=== PATIENT | female | born 1975 | race Caucasian/White ===

== ENCOUNTER 2017-09-06 15:10 | Emergency (ER) | payer MEDICAID, OTHER ==
[2017-09-06 16:13] LABS: ADD MAN DIFF? NO
[2017-09-06 16:16] LABS: WHITE BLOOD COUNT 10.3 10^3/ul (4.8-10.8)
[2017-09-06 16:16] LABS: BASOPHIL # 0.1 10^3/ul (0.0-0.1); BASOPHILS % 0.7 % (0.0-2.0); EOSINOPHILS # 0.1 10^3/ul (0.0-0.5); EOSINOPHILS % 0.9 % (0.0-7.0); HEMOGLOBIN 12.5 g/dl (12.0-16.0); LYMPHOCYTES # 1.9 10^3/ul (0.8-2.9); LYMPHOCYTES % 18.3 % (15.0-51.0); MEAN CORPUSCULAR HEMOGLOBIN 26.1 pg (29.0-33.0); MEAN CORPUSCULAR HGB CONC 33.8 g/dl (32.0-37.0); MEAN CORPUSCULAR VOLUME 77.2 fl (82.0-101.0); MEAN PLATELET VOLUME 10.1 fl (7.4-10.4); MONOCYTE # 0.8 10^3/ul (0.3-0.9); MONOCYTES % 7.4 % (0.0-11.0); NEUTROPHIL # 7.4 10^3/ul (1.6-7.5); NEUTROPHILS % 72.2 % (39.0-77.0); PLATELET COUNT 271 10^3/UL (140-415); RED BLOOD COUNT 4.79 10^6/ul (4.20-5.40); RED CELL DISTRIBUTION WIDTH 17.2 % (11.5-14.5)
[2017-09-06 16:40] LABS: ADD UMIC YES; UR ASCORBIC ACID 40 mg/dL (NEGATIVE); UR BACTERIA FEW /HPF (NONE SEEN); UR BILIRUBIN (Dip) NEGATIVE (NEGATIVE); UR BLOOD (Dip) 3+ mg/dL (NEGATIVE); UR CLARITY SLIGHTLY CLOUDY (CLEAR); UR COLOR YELLOW (YELLOW); UR GLUCOSE (Dip) 1+ mg/dL (NEGATIVE); UR KETONES (Dip) TRACE mg/dL (NEGATIVE); UR LEUKOCYTE ESTERASE (Dip) TRACE Leu/ul (NEGATIVE); UR MUCUS FEW /HPF (NONE SEEN); UR NITRITE (Dip) NEGATIVE (NEGATIVE); UR RBC > 182 /HPF (0-5); UR SPECIFIC GRAVITY (Dip) 1.025 (1.003-1.030); UR TOTAL PROTEIN (Dip) 1+ mg/dl (NEGATIVE); UR UROBILINOGEN (Dip) NEGATIVE (NEGATIVE); UR WBC 29 /HPF (0-5)
== END 2017-09-06 18:02 | disposition home or self-care (01) ==
LOC: FTE 15:10
DX: O20.9 Hemorrhage in early pregnancy, unspecified (principal); R10.2 Pelvic and perineal pain; Z3A.12 12 weeks gestation of pregnancy
CPT/HCPCS: 36415; 76801; 81001; 84702; 85025; 86900; 86901; 99284-25

== ENCOUNTER 2018-01-15 12:42 | Inpatient (IN) | payer MEDICAID ==
[2018-01-15] MEDS: LACTATED RINGER'S 1,000 ML IV ×4 (15:10→23:51)
[2018-01-15 15:15] LABS: ADD UMIC YES; UR ASCORBIC ACID NEGATIVE (NEGATIVE); UR BACTERIA FEW /HPF (NONE SEEN); UR BILIRUBIN (Dip) NEGATIVE (NEGATIVE); UR BLOOD (Dip) NEGATIVE (NEGATIVE); UR CLARITY CLOUDY (CLEAR); UR COLOR YELLOW (YELLOW); UR GLUCOSE (Dip) NEGATIVE (NEGATIVE); UR KETONES (Dip) 1+ mg/dL (NEGATIVE); UR LEUKOCYTE ESTERASE (Dip) 2+ Leu/ul (NEGATIVE); UR MUCUS FEW /HPF (NONE SEEN); UR NITRITE (Dip) NEGATIVE (NEGATIVE); UR RBC 2 /HPF (0-5); UR SPECIFIC GRAVITY (Dip) 1.019 (1.003-1.030); UR SQUAMOUS EPITHELIAL CELL MANY /HPF (FEW); UR TOTAL PROTEIN (Dip) NEGATIVE (NEGATIVE); UR UROBILINOGEN (Dip) NEGATIVE (NEGATIVE); UR WBC 12 /HPF (0-5)
[2018-01-15 15:31] LABS: ADD MAN DIFF? NO
[2018-01-15 15:35] LABS: BASOPHILS % 0.4 % (0.0-2.0); EOSINOPHILS # 0.1 10^3/ul (0.0-0.5); EOSINOPHILS % 0.6 % (0.0-7.0); HEMATOCRIT 37.3 % (37.0-47.0); HEMOGLOBIN 12.7 g/dl (12.0-16.0); LYMPHOCYTES # 1.9 10^3/ul (0.8-2.9); MEAN CORPUSCULAR VOLUME 88.2 fl (82.0-101.0); MEAN PLATELET VOLUME 11.4 fl (7.4-10.4); MONOCYTE # 0.8 10^3/ul (0.3-0.9); MONOCYTES % 8.3 % (0.0-11.0); NEUTROPHIL # 6.3 10^3/ul (1.6-7.5); NEUTROPHILS % 69.3 % (39.0-77.0); PLATELET COUNT 221 10^3/UL (140-415); RED BLOOD COUNT 4.23 10^6/ul (4.20-5.40); RED CELL DISTRIBUTION WIDTH 13.6 % (11.5-14.5)
[2018-01-15 15:58] LABS: ALANINE AMINOTRANSFERASE 12 IU/L (13-69); ALBUMIN 3.6 g/dl (3.3-4.9); ALKALINE PHOSPHATASE 178 IU/L (42-121); ANION GAP 14 (8-16); ASPARTATE AMINO TRANSFERASE 22 IU/L (15-46); BILIRUBIN,INDIRECT 0.4 mg/dl (0-1.1); BILIRUBIN,TOTAL 0.4 mg/dl (0.2-1.3); BLOOD UREA NITROGEN 7 mg/dl (7-20); CALCIUM 9.1 mg/dl (8.4-10.2); CARBON DIOXIDE 20 mmol/L (21-31); CHLORIDE 108 mmol/L (97-110); CREATININE 0.51 mg/dl (0.44-1.00); GLUCOSE 78 mg/dl (70-220); SODIUM 138 mmol/L (135-144); TOTAL PROTEIN 7.6 g/dl (6.1-8.1)
[2018-01-15 16:09] LABS: PROTIME 12.2 Sec (11.9-14.9)
[2018-01-15 16:10] LABS: PARTIAL THROMBOPLASTIN TIME 27.5 Sec (25.0-35.0)
[2018-01-15] MEDS: ACETAMINOPHEN 325 MG TAB PO (17:00)
[2018-01-15] MEDS: BETAMET NA PHOS/AC(6 MG/ML) 5ML INJ IM (23:06)
[2018-01-15 23:14] LABS: RAPID PLASMA REAGIN NONREACTIVE (NR)
[2018-01-16] MEDS: LACTATED RINGER'S 1,000 ML IV ×2 (07:59→16:16)
[2018-01-16] MEDS: BETAMET NA PHOS/AC(6 MG/ML) 5ML INJ IM (23:05)
[2018-01-17] MEDS: LACTATED RINGER'S 1,000 ML IV ×2 (00:57→09:14)
[2018-01-17 04:42] LABS: COLLECTION PERIOD 24 hrs
[2018-01-17 05:24] LABS: VOLUME 3200 mls
[2018-01-17 05:46] LABS: COLLECTION PERIOD 24 hrs; SCRET 0.49 mg/dl (0.44-1.00); VOLUME 3200 ml/24hrs
[2018-01-17 05:47] LABS: CREATININE CLEARANCE 221.6 mls/min (84.0-162.0); CREATININE,URINE RANDOM 48.86 mg/dl (20-320)
[2018-01-17 05:55] LABS: CREATININE 0.49 mg/dl (0.44-1.00)
[2018-01-17] MEDS: NITROFURANTOIN (SR) 100 MG CAP PO ×2 (10:30→21:00)
== END 2018-01-17 21:00 | disposition home or self-care (01) | DRG 782 ==
LOC: OBT 12:42 → L-D 12:43 → OBT 12:43 → L-D 13:21
DX: O13.3 Gestational [pregnancy-induced] hypertension without significant proteinuria, third trimester (principal); O30.003 Twin pregnancy, unspecified number of placenta and unspecified number of amniotic sacs, third trimester; Z3A.31 31 weeks gestation of pregnancy
CPT/HCPCS: 76817; 76818; 80053; 81001; 82565; 82575; 84156; 84560; 85025; 85384; 85610; 85730; 86592; 86900; 86901; 87086

== ENCOUNTER 2018-02-10 14:34 | Inpatient (IN) | payer MEDICAID ==
[2018-02-10] MEDS ORDERED: DOCUSATE SODIUM 100 MG CAP PO (15:30)
[2018-02-10] MEDS ORDERED: ACETAMINOPHEN 325 MG TAB PO (15:30)
[2018-02-10 16:15] LABS: ADD UMIC YES; UR ASCORBIC ACID NEGATIVE (NEGATIVE); UR BILIRUBIN (Dip) NEGATIVE (NEGATIVE); UR BLOOD (Dip) NEGATIVE (NEGATIVE); UR CLARITY SLIGHTLY CLOUDY (CLEAR); UR COLOR YELLOW (YELLOW); UR GLUCOSE (Dip) NEGATIVE (NEGATIVE); UR KETONES (Dip) NEGATIVE (NEGATIVE); UR LEUKOCYTE ESTERASE (Dip) 2+ Leu/ul (NEGATIVE); UR MUCUS FEW /HPF (NONE SEEN); UR NITRITE (Dip) NEGATIVE (NEGATIVE); UR RBC 1 /HPF (0-5); UR SPECIFIC GRAVITY (Dip) 1.015 (1.003-1.030); UR SQUAMOUS EPITHELIAL CELL MODERATE /HPF (FEW); UR TOTAL PROTEIN (Dip) NEGATIVE (NEGATIVE); UR UROBILINOGEN (Dip) NEGATIVE (NEGATIVE); UR WBC 13 /HPF (0-5)
[2018-02-10 16:50] LABS: ADD MAN DIFF? NO
[2018-02-10 16:51] LABS: WHITE BLOOD COUNT 7.6 10^3/ul (4.8-10.8)
[2018-02-10 16:51] LABS: BASOPHILS % 0.4 % (0.0-2.0); EOSINOPHILS # 0.1 10^3/ul (0.0-0.5); EOSINOPHILS % 0.9 % (0.0-7.0); HEMATOCRIT 35.8 % (37.0-47.0); HEMOGLOBIN 12.1 g/dl (12.0-16.0); LYMPHOCYTES # 2.1 10^3/ul (0.8-2.9); MEAN CORPUSCULAR HEMOGLOBIN 28.9 pg (29.0-33.0); MEAN CORPUSCULAR HGB CONC 33.8 g/dl (32.0-37.0); MEAN CORPUSCULAR VOLUME 85.6 fl (82.0-101.0); MEAN PLATELET VOLUME 11.5 fl (7.4-10.4); MONOCYTE # 0.6 10^3/ul (0.3-0.9); MONOCYTES % 7.8 % (0.0-11.0); NEUTROPHIL # 4.8 10^3/ul (1.6-7.5); NEUTROPHILS % 62.6 % (39.0-77.0); PLATELET COUNT 187 10^3/UL (140-415); RED BLOOD COUNT 4.18 10^6/ul (4.20-5.40); RED CELL DISTRIBUTION WIDTH 12.8 % (11.5-14.5)
[2018-02-10] MEDS: BETAMET NA PHOS/AC(6 MG/ML) 5ML INJ IM (17:02)
[2018-02-10 17:10] LABS: ALANINE AMINOTRANSFERASE 12 IU/L (13-69); ALBUMIN 3.7 g/dl (3.3-4.9); ALBUMIN/GLOBULIN RATIO 1.15; ALKALINE PHOSPHATASE 238 IU/L (42-121); ANION GAP 16 (8-16); ASPARTATE AMINO TRANSFERASE 20 IU/L (15-46); BILIRUBIN,INDIRECT 0.3 mg/dl (0-1.1); BILIRUBIN,TOTAL 0.3 mg/dl (0.2-1.3); BLOOD UREA NITROGEN 10 mg/dl (7-20); CALCIUM 9.1 mg/dl (8.4-10.2); CARBON DIOXIDE 21 mmol/L (21-31); CHLORIDE 104 mmol/L (97-110); CREATININE 0.66 mg/dl (0.44-1.00); GLUCOSE 85 mg/dl (70-220); POTASSIUM 4.1 mmol/L (3.5-5.1); SODIUM 137 mmol/L (135-144); TOTAL PROTEIN 6.9 g/dl (6.1-8.1); URIC ACID 6.1 mg/dl (3.1-7.9)
[2018-02-10 17:15] LABS: PROTIME 12.2 Sec (11.9-14.9)
[2018-02-10 17:16] LABS: PARTIAL THROMBOPLASTIN TIME 27.5 Sec (25.0-35.0)
[2018-02-10] MEDS: PRENATAL VITAMIN PO (20:34)
[2018-02-11 08:11] LABS: ADD MAN DIFF? NO
[2018-02-11 08:14] LABS: WHITE BLOOD COUNT 7.8 10^3/ul (4.8-10.8)
[2018-02-11 08:14] LABS: BASOPHILS % 0.1 % (0.0-2.0); HEMATOCRIT 34.5 % (37.0-47.0); HEMOGLOBIN 11.7 g/dl (12.0-16.0); LYMPHOCYTES # 1.5 10^3/ul (0.8-2.9); LYMPHOCYTES % 19.5 % (15.0-51.0); MEAN CORPUSCULAR HGB CONC 33.9 g/dl (32.0-37.0); MEAN CORPUSCULAR VOLUME 85.4 fl (82.0-101.0); MONOCYTE # 0.5 10^3/ul (0.3-0.9); MONOCYTES % 6.1 % (0.0-11.0); NEUTROPHIL # 5.8 10^3/ul (1.6-7.5); NEUTROPHILS % 73.7 % (39.0-77.0); PLATELET COUNT 180 10^3/UL (140-415); RED BLOOD COUNT 4.04 10^6/ul (4.20-5.40); RED CELL DISTRIBUTION WIDTH 12.8 % (11.5-14.5)
[2018-02-11 08:53] LABS: ALANINE AMINOTRANSFERASE 14 IU/L (13-69); ALBUMIN 3.5 g/dl (3.3-4.9); ALBUMIN/GLOBULIN RATIO 1.09; ALKALINE PHOSPHATASE 238 IU/L (42-121); ANION GAP 18 (8-16); ASPARTATE AMINO TRANSFERASE 21 IU/L (15-46); BILIRUBIN,INDIRECT 0.3 mg/dl (0-1.1); BILIRUBIN,TOTAL 0.3 mg/dl (0.2-1.3); BLOOD UREA NITROGEN 11 mg/dl (7-20); CALCIUM 9.1 mg/dl (8.4-10.2); CARBON DIOXIDE 18 mmol/L (21-31); CHLORIDE 103 mmol/L (97-110); CREATININE 0.65 mg/dl (0.44-1.00); GLUCOSE 101 mg/dl (70-220); POTASSIUM 3.8 mmol/L (3.5-5.1); SODIUM 135 mmol/L (135-144); TOTAL PROTEIN 6.7 g/dl (6.1-8.1); URIC ACID 6.8 mg/dl (3.1-7.9)
[2018-02-11] MEDS: PRENATAL VITAMIN PO (11:14)
[2018-02-11 17:15] LABS: COLLECTION PERIOD 24 hrs
[2018-02-11 18:35] LABS: VOLUME 2500 mls
[2018-02-11 18:37] LABS: SCRET 0.65 mg/dl (0.44-1.00)
[2018-02-11 18:38] LABS: COLLECTION PERIOD 24 hrs; CREATININE CLEARANCE 183.1 mls/min (84.0-162.0); CREATININE,URINE RANDOM 68.56 mg/dl (20-320); VOLUME 2500 ml/24hrs
[2018-02-12] MEDS: PRENATAL VITAMIN PO (09:31)
== END 2018-02-12 20:40 | disposition home or self-care (01) | DRG 781 ==
LOC: OBT 14:34 → L-D 14:34 → OBT 15:44 → PP1 15:44
DX: O14.03 Mild to moderate pre-eclampsia, third trimester (principal); O32.2XX2 Maternal care for transverse and oblique lie, fetus 2; O30.003 Twin pregnancy, unspecified number of placenta and unspecified number of amniotic sacs, third trimester; Z3A.34 34 weeks gestation of pregnancy
CPT/HCPCS: 76815; 80053; 81001; 82575; 84156; 84560; 85025; 85384; 85610; 85730; 87081; 87086

== ENCOUNTER 2018-02-17 11:13 | Inpatient (IN) | payer MEDICAID ==
[2018-02-17 12:13] LABS: ADD MAN DIFF? NO
[2018-02-17 12:17] LABS: WHITE BLOOD COUNT 6.5 10^3/ul (4.8-10.8)
[2018-02-17 12:17] LABS: BASOPHILS % 0.3 % (0.0-2.0); EOSINOPHILS # 0.1 10^3/ul (0.0-0.5); EOSINOPHILS % 1.4 % (0.0-7.0); HEMATOCRIT 32.9 % (37.0-47.0); HEMOGLOBIN 11.2 g/dl (12.0-16.0); LYMPHOCYTES # 1.9 10^3/ul (0.8-2.9); LYMPHOCYTES % 28.9 % (15.0-51.0); MEAN CORPUSCULAR HEMOGLOBIN 29.1 pg (29.0-33.0); MEAN CORPUSCULAR VOLUME 85.5 fl (82.0-101.0); MEAN PLATELET VOLUME 12.2 fl (7.4-10.4); MONOCYTE # 0.7 10^3/ul (0.3-0.9); NEUTROPHIL # 3.8 10^3/ul (1.6-7.5); NEUTROPHILS % 59.1 % (39.0-77.0); NUCLEATED RED BLOOD CELLS% 0.3 /100WBC (0.0-0.0); PLATELET COUNT 177 10^3/UL (140-415); RED BLOOD COUNT 3.85 10^6/ul (4.20-5.40); RED CELL DISTRIBUTION WIDTH 13.2 % (11.5-14.5)
[2018-02-17] MEDS: LACTATED RINGER'S 1,000 ML IV ×3 (12:18→19:30)
[2018-02-17 12:33] LABS: INR 0.85; PROTIME 11.7 Sec (11.9-14.9); PT RATIO 0.9
[2018-02-17 12:51] LABS: ALANINE AMINOTRANSFERASE 14 IU/L (13-69); ALBUMIN/GLOBULIN RATIO 0.81; ALKALINE PHOSPHATASE 239 IU/L (42-121); ANION GAP 11 (8-16); ASPARTATE AMINO TRANSFERASE 19 IU/L (15-46); BILIRUBIN,INDIRECT 0.4 mg/dl (0-1.1); BILIRUBIN,TOTAL 0.4 mg/dl (0.2-1.3); BLOOD UREA NITROGEN 14 mg/dl (7-20); CALCIUM 8.6 mg/dl (8.4-10.2); CARBON DIOXIDE 21 mmol/L (21-31); CHLORIDE 111 mmol/L (97-110); CREATININE 0.69 mg/dl (0.44-1.00); GLUCOSE 71 mg/dl (70-220); POTASSIUM 4.2 mmol/L (3.5-5.1); SODIUM 139 mmol/L (135-144); TOTAL PROTEIN 6.7 g/dl (6.1-8.1)
[2018-02-17] MEDS: LABETALOL HCL 20MG INJ IV (13:00)
[2018-02-17] MEDS: LABETALOL 200 MG TAB GTB ×2 (13:02→13:03)
[2018-02-17 16:23] LABS: ADD UMIC YES; UR ASCORBIC ACID NEGATIVE (NEGATIVE); UR BILIRUBIN (Dip) NEGATIVE (NEGATIVE); UR BLOOD (Dip) NEGATIVE (NEGATIVE); UR CLARITY CLEAR (CLEAR); UR COLOR YELLOW (YELLOW); UR GLUCOSE (Dip) NEGATIVE (NEGATIVE); UR KETONES (Dip) TRACE mg/dL (NEGATIVE); UR LEUKOCYTE ESTERASE (Dip) TRACE Leu/ul (NEGATIVE); UR NITRITE (Dip) NEGATIVE (NEGATIVE); UR RBC 0 /HPF (0-5); UR SPECIFIC GRAVITY (Dip) 1.014 (1.003-1.030); UR SQUAMOUS EPITHELIAL CELL FEW /HPF (FEW); UR TOTAL PROTEIN (Dip) NEGATIVE (NEGATIVE); UR UROBILINOGEN (Dip) NEGATIVE (NEGATIVE); UR WBC 3 /HPF (0-5)
[2018-02-17 21:36] LABS: RAPID PLASMA REAGIN NONREACTIVE (NR)
[2018-02-18] MEDS: LABETALOL 200 MG TAB GTB (00:32)
[2018-02-18] MEDS: LACTATED RINGER'S 1,000 ML IV ×3 (03:03→20:08)
[2018-02-18] MEDS ORDERED: OXYTOCIN 30 UNITS/LR 500 ML BAG IV (07:00)
[2018-02-18] MEDS ORDERED: CARBOPROST 250 MCG INJ (07:00)
[2018-02-18] MEDS: LABETALOL 200 MG TAB PO ×2 (08:58→23:56)
[2018-02-18] MEDS: MAGNESIUM SULFATE 4 GM/100 ML 100 ML IV (17:56)
[2018-02-18] MEDS: MAGNESIUM SULFATE 20 GM/500 ML 500 ML IV (18:26)
[2018-02-18] MEDS ORDERED: CEFAZOLIN 2 GM/50 ML (PMX) 50 ML IV ×2 (18:30→20:30)
[2018-02-18] MEDS ORDERED: MISOPROSTOL 200 MCG TAB PR ×2 (20:30→23:30)
[2018-02-18] MEDS ORDERED: CARBOPROST 250 MCG INJ IM ×2 (20:30→23:30)
[2018-02-18] MEDS ORDERED: METHYLERGONOVINE 0.2 MG INJ IM ×2 (20:30→23:30)
[2018-02-18] MEDS ORDERED: morphine SULFATE/PF (10 MG/10 ML) INJ (20:45)
[2018-02-18] MEDS ORDERED: BUPIVACAINE 0.75%/DEXT (SPINAL) 2 ML INJ (20:45)
[2018-02-18] MEDS ORDERED: FENTAnyl 50 MCG/ML VIAL ×2 (21:30→21:34)
[2018-02-18] MEDS: OXYTOCIN 30 UNITS/LR 500 ML IV (22:53)
[2018-02-18] MEDS ORDERED: OXYTOCIN 30 UNITS/LR 500 ML IV (23:30)
[2018-02-18] MEDS ORDERED: METHYLERGONOVINE 0.2 MG TAB PO (23:30)
[2018-02-18] MEDS: LABETALOL HCL 20MG INJ IV (23:59)
[2018-02-19] MEDS ORDERED: ALBUTEROL 0.083% (NEB) 2.5 MG/3 ML AMP HHN
[2018-02-19] MEDS ORDERED: KETOROLAC 30 MG INJ IV
[2018-02-19] MEDS ORDERED: ONDANSETRON 4 MG INJ IV
[2018-02-19] MEDS ORDERED: HYDROmorphONE 0.5 MG/0.5 ML SYG IV ×2
[2018-02-19] MEDS ORDERED: FENTAnyl 50 MCG/ML VIAL IV ×3
[2018-02-19] MEDS ORDERED: HYDROmorphONE 1 MG/5 ML IV SYRINGE IV ×3
[2018-02-19] MEDS ORDERED: METOCLOPRAMIDE 10 MG INJ IV
[2018-02-19] MEDS ORDERED: NALOXONE (0.4 MG/ML) INJ IV
[2018-02-19] MEDS ORDERED: DIPHENHYDRAMINE 50 MG INJ IV ×2
[2018-02-19] MEDS: LABETALOL HCL 20MG INJ IV (00:39)
[2018-02-19] MEDS ORDERED: LABETALOL HCL 20MG INJ IV ×2 (03:00)
[2018-02-19] MEDS: ONDANSETRON 4 MG INJ IV (04:54)
[2018-02-19] MEDS: OXYTOCIN 30 UNITS/LR 500 ML IV (04:56)
[2018-02-19] MEDS: MAGNESIUM SULFATE 20 GM/500 ML 500 ML IV ×2 (04:57→15:22)
[2018-02-19] MEDS: DEXTROSE 5%-LR 1,000 ML IV ×3 (05:38→15:22)
[2018-02-19] MEDS: MISOPROSTOL 200 MCG TAB PR (05:38)
[2018-02-19] MEDS: SENNA/DOCUSATE NA (8.6MG/50MG) TAB PO ×2 (09:18→21:14)
[2018-02-19] MEDS: LANOLIN 7 GM TUBE TOP (09:18)
[2018-02-19] MEDS: LABETALOL 100 MG TAB PO (09:19)
[2018-02-19 10:27] LABS: ADD MAN DIFF? NO
[2018-02-19 10:34] LABS: WHITE BLOOD COUNT 10.9 10^3/ul (4.8-10.8)
[2018-02-19 10:34] LABS: BASOPHILS % 0.2 % (0.0-2.0); EOSINOPHILS % 0.2 % (0.0-7.0); HEMATOCRIT 29.2 % (37.0-47.0); LYMPHOCYTES # 1.5 10^3/ul (0.8-2.9); LYMPHOCYTES % 13.6 % (15.0-51.0); MEAN CORPUSCULAR HEMOGLOBIN 29.5 pg (29.0-33.0); MEAN CORPUSCULAR HGB CONC 34.2 g/dl (32.0-37.0); MEAN CORPUSCULAR VOLUME 86.1 fl (82.0-101.0); MEAN PLATELET VOLUME 12.2 fl (7.4-10.4); MONOCYTE # 0.8 10^3/ul (0.3-0.9); MONOCYTES % 7.5 % (0.0-11.0); NEUTROPHIL # 8.5 10^3/ul (1.6-7.5); PLATELET COUNT 142 10^3/UL (140-415); RED BLOOD COUNT 3.39 10^6/ul (4.20-5.40); RED CELL DISTRIBUTION WIDTH 13.2 % (11.5-14.5)
[2018-02-19 11:36] LABS: MAGNESIUM 5.4 mg/dl (1.7-2.5)
[2018-02-19 13:12] LABS: MAGNESIUM 5.4 mg/dl (1.7-2.5)
[2018-02-19 18:23] LABS: MAGNESIUM 5.6 mg/dl (1.7-2.5)
[2018-02-19] MEDS ORDERED: OXYCODONE/ACETAMINOPHEN (5/325) TAB PO (20:45)
[2018-02-19] MEDS: OXYCODONE/ACETAMINOPHEN (5/325) TAB PO (20:45)
[2018-02-19] MEDS: KETOROLAC 30 MG INJ IV (21:14)
[2018-02-19] MEDS: LABETALOL 200 MG TAB PO (21:17)
[2018-02-19] MEDS: IBUPROFEN 800 MG TAB PO (22:00)
[2018-02-20] MEDS: OXYCODONE/ACETAMINOPHEN (5/325) TAB PO ×3 (04:45→20:44)
[2018-02-20] MEDS: IBUPROFEN 800 MG TAB PO ×3 (05:41→22:07)
[2018-02-20] MEDS: LABETALOL 200 MG TAB PO ×2 (08:30→20:53)
[2018-02-20] MEDS: SENNA/DOCUSATE NA (8.6MG/50MG) TAB PO ×2 (08:31→20:43)
[2018-02-20] MEDS: MAGNESIUM HYDROXIDE 30ML CUP PO (08:35)
[2018-02-21] MEDS: LANOLIN 7 GM TUBE TOP (04:39)
[2018-02-21] MEDS: OXYCODONE/ACETAMINOPHEN (5/325) TAB PO ×3 (04:39→21:15)
[2018-02-21] MEDS: IBUPROFEN 800 MG TAB PO ×3 (05:44→21:33)
[2018-02-21] MEDS: SENNA/DOCUSATE NA (8.6MG/50MG) TAB PO ×2 (08:54→21:15)
[2018-02-21] MEDS: LABETALOL 200 MG TAB PO ×3 (08:55→21:15)
[2018-02-22] MEDS: OXYCODONE/ACETAMINOPHEN (5/325) TAB PO ×2 (04:57→12:57)
[2018-02-22] MEDS: IBUPROFEN 800 MG TAB PO ×2 (05:48→14:07)
[2018-02-22] MEDS: DIPHTH/TET/ACEL PERTUSS (ADULT) 0.5 ML VIAL IM* (07:45)
[2018-02-22] MEDS: MEASLES,MUMPS,RUBELLA VACCINE INJ SC* (07:46)
[2018-02-22] MEDS: SENNA/DOCUSATE NA (8.6MG/50MG) TAB PO (08:56)
[2018-02-22] MEDS: LABETALOL 200 MG TAB PO ×2 (08:56→12:58)
== END 2018-02-22 17:58 | disposition home or self-care (01) | DRG 765 ==
LOC: L-D 11:13 → PP1 02-19 03:10 → L-D 02-18 20:39
PROC: 10D00Z1 Extraction of Products of Conception, Low, Open Approach (ICD-10-PCS; principal; 2018-02-18 21:30)
PROC: 0UB50ZZ Excision of Right Fallopian Tube, Open Approach (ICD-10-PCS; 2018-02-18 21:30)
DX: O14.14 Severe pre-eclampsia complicating childbirth (principal); O30.043 Twin pregnancy, dichorionic/diamniotic, third trimester; O75.89 Other specified complications of labor and delivery; N83.8 Other noninflammatory disorders of ovary, fallopian tube and broad ligament; O99.214 Obesity complicating childbirth; E66.01 Morbid (severe) obesity due to excess calories; Z68.39 Body mass index [BMI] 39.0-39.9, adult; Z3A.35 35 weeks gestation of pregnancy; Z37.2 Twins, both liveborn
CPT/HCPCS: 59025; 76815; 76816; 80053; 81001; 83735; 84560; 85025; 85610; 85730; 86592; 86850; 86900; 86901; 88307; 99464